=== PATIENT | female | born 1960 | race African-American/Black ===

== ENCOUNTER 2023-08-13 21:06 | Emergency (ER) | payer MEDICAID ==
[~2023-08-13] VITALS: Ht 175.3 cm; Wt 86.1 kg
[~2023-08-13 21:06] MED LIST: ALBU18HF2 IH; MOME13HF12 INH
[2023-08-13 21:16] VITALS: BP 153/97
[2023-08-13] MEDS ORDERED: IPRATROPIUM BROMIDE (0.02%) 0.5MG/2.5ML NEB HHN STA (21:51)
[2023-08-13] MEDS ORDERED: ALBUTEROL (0.083%) 2.5MG/3ML NEB HHN STA (21:51)
[2023-08-13] MEDS ORDERED: METHYLPREDNISOLONE SOD SUCC 125MG/2ML (ACT-O-VIAL) IM STA (21:51)
[2023-08-13 22:36] VITALS: PULSE 81; RESP 20; O2SAT 95
[2023-08-13 23:42] LABS: BASOPHILS % 0.2 % (0.0-2.0); DIFFERENTIAL COMMENT 0; EOSINOPHILS % 1.4 % (0.0-5.0); HEMATOCRIT. 43.4 % (36.0-48.0); LYMPHOCYTES % 16.7 % (20.0-50.0); MEAN CORPUSCULAR HEMOGLOBIN 24.5 pg (28.0-32.0); MEAN CORPUSCULAR HGB CONC 32.2 g/dL (31.0-37.0); MEAN CORPUSCULAR VOLUME 76.2 fL (81.0-99.0); MEAN PLATELET VOLUME 7.8 fl (7.4-10.4); MONOCYTES % 7.5 % (2.0-8.0); NEUTROPHILS % 74.2 % (40.0-76.0); PLATELET 262 x1000/uL (130-400); RED BLOOD CELL COUNT 5.69 mill/uL (4.2-5.4); RED CELL DISTRIBUTION WIDTH 13.9 % (11.6-14.6); WHITE BLOOD COUNT 9.2 x1000/uL (4.5-11.0)
[2023-08-14 00:04] LABS: ALANINE AMINOTRANSFERASE 11 IU/L (10-49); ALBUMIN 4.5 g/dL (3.2-4.8); ASPARTATE AMINOTRANSFERASE 16 IU/L (<34); BILIRUBIN TOTAL 0.6 mg/dL (0.1-1.0); CALCIUM 9.5 mg/dL (8.7-10.4); CARBON DIOXIDE 27 mEq/L (21-32); CHLORIDE 105 mEq/L (98-107); CREATININE 0.7 mg/dL (0.6-1.0); GLUCOSE 104 mg/dL (70-105); POTASSIUM 3.8 mEq/L (3.5-5.1); PROTEIN TOTAL 7.5 g/dL (6.0-8.3); SODIUM 140 mEq/L (136-145); TROPONIN I HIGH SENSITIVITY 4 ng/L (3.0-34); UREA NITROGEN BLOOD 13 mg/dL (9-23)
[2023-08-14] MEDS ORDERED: P50 PO (00:44)
[2023-08-14] MEDS ORDERED: ALBU18HF2 IH ×2 (00:44)
[2023-08-14] MEDS ORDERED: DEXTL PO (00:44)
[2023-08-14 01:02] VITALS: PULSE 81; RESP 20; TEMP 98.4
[2023-08-17] MEDS ORDERED: FLUT1DIS3 INH (13:57)
[2023-08-17] MEDS ORDERED: TAM75 MT (13:57)
[2023-08-17] MEDS ORDERED: ALBU18HF2 IH (13:57)
== END 2023-08-14 01:06 | disposition home or self-care (01) ==
LOC: ER 21:06
DX: J45.901 Unspecified asthma with (acute) exacerbation (principal); I25.2 Old myocardial infarction; Z20.822 Contact with and (suspected) exposure to COVID-19
CPT/HCPCS: 80053; 81025; 83880; 85025; 84484; 36415; 71045; 94640; 93005; 99285; 87426; J2930; Z7610 ×3; C9803